=== PATIENT | female | born 1960 | race Caucasian/White ===

== ENCOUNTER 2018-04-30 08:25 | Day surgery (SDC) | payer OTHER ==
[~2018-04-30] VITALS: Ht 162.6 cm; Wt 67.6 kg
[~2018-04-30 08:25] MED LIST: ALBU90OI61 INH; Aspir 8181 MG PO; B-121000 MC2 PO; Multivitamin1 EAC1 PO; VITAMIN D34000 UNIT PO; Vitamin B Comple1 EA PO
== END 2018-04-30 10:45 | disposition home or self-care (01) ==
LOC: ORSCSDS 08:25
PROVIDERS: Surgery
PROC: 0DBN8ZX Excision of Sigmoid Colon, Via Natural or Artificial Opening Endoscopic, Diagnostic (ICD-10-PCS; principal; 2018-04-30 09:45)
DX: Z12.11 Encounter for screening for malignant neoplasm of colon (principal); K63.5 Polyp of colon; Z83.71 Family history of colonic polyps; Z87.891 Personal history of nicotine dependence; Z79.82 Long term (current) use of aspirin; Z79.899 Other long term (current) drug therapy
CPT/HCPCS: 88305; J7120